=== PATIENT | female | born 1970 | race Caucasian/White ===

== ENCOUNTER 2020-05-27 09:58 | Emergency (ER) | payer OTHER ==
[~2020-05-27] VITALS: Ht 162.6 cm; Wt 96.6 kg
[2020-05-27 10:00] VITALS: Ht 162.6 cm; Wt 96.6 kg
[2020-05-27 11:58] VITALS: BP 111/76
== END 2020-05-27 11:58 | disposition home or self-care (01) ==
LOC: ED 09:58
DX: U07.1 COVID-19 (principal)